=== PATIENT | male | born 1940 | race Caucasian/White ===

== ENCOUNTER → 2018-01-08 | Outpatient (CLI) | payer MEDICARE, OTHER ==
--- NOTE | 2018-01-08 10:18 | RADIOLOGY REPORT (SQ) ---
EXAM DESCRIPTION: CHEST PA/LATERAL COMPLETED DATE/TIME: 01/08/2018 9:59 am REASON FOR STUDY: CHEST PAIN COMPARISON: 04/30/2010, 02/28/2010 EXAM PARAMETERS: NUMBER OF VIEWS: two views TECHNIQUE: Digital Frontal and Lateral radiographic views of the chest acquired. RADIATION DOSE: NA LIMITATIONS: none FINDINGS: LUNGS AND PLEURA: No opacities, masses or pneumothorax. No pleural effusion. MEDIASTINUM AND HILAR STRUCTURES: No masses or contour abnormalities. HEART AND VASCULAR STRUCTURES: Heart normal size. No evidence for failure. BONES: No acute findings. HARDWARE: None in the chest. OTHER: No other significant finding. IMPRESSION: NO SIGNIFICANT RADIOGRAPHIC FINDING IN THE CHEST. TECHNICAL DOCUMENTATION: JOB ID: [id number] [employer]- All Rights Reserved Reading location - IP/workstation name: [email or web address]
== END ==
LOC: OD 09:42
PROVIDERS: ATTEND Student in an Organized Health Care Education/Training Program
DX: R07.9 Chest pain, unspecified (principal); R05 Cough
CPT/HCPCS: 71046

== ENCOUNTER → 2018-01-22 | Outpatient (CLI) | payer MEDICARE, OTHER ==
--- NOTE | 2018-01-22 16:33 | RADIOLOGY REPORT (SQ) ---
EXAM DESCRIPTION: CT CHEST WITH COMPLETED DATE/TIME: 01/22/2018 8:10 am REASON FOR STUDY: CHEST PAIN (R07.9) R07.9 CHEST PAIN, UNSPECIFIED COMPARISON: Chest x-ray 01/08/2018 TECHNIQUE: CT scan of the chest performed using helical scanning technique with dynamic intravenous contrast injection. Images reviewed with lung, soft tissue and bone windows. Reconstructed coronal and sagittal MPR and MIP images reviewed. All images stored on PACS. All CT scanners at this facility use dose modulation, iterative reconstruction, and/or weight based d osing when appropriate to reduce radiation dose to as low as reasonably achievable (ALARA). [facility]: Dose Right [facility]: CareDose [facility]: Dose Right [facility]: Teradose 4D [facility]: Kybernesis CONTRAST TYPE AND DOSE: contrast/concentration: Isovue 300.00 mg/ml; Total Contrast Delivered: 80.0 ml; Total Saline Delivered: 55.0 ml RENAL FUNCTION: Creatinine 1.2 RADIATION DOSE: CT Rad equipment meets quality standard of care and radiation dose reduction techniq ues were employed. CTDIvol: 10.8 mGy. DLP: 416 mGy-cm. . LIMITATIONS: None. FINDINGS: LUNGS AND PLEURA: Limited pleural/ parenchymal scarring in the right base. No infiltrate or effusion. No pulmonary mass is seen. HILAR AND MEDIASTINAL STRUCTURES: No identified masses or abnormal nodes. HEART AND VASCULAR STRUCTURES: No aneurysm. No dissection. No central pulmonary emboli. Coronary a therosclerosis. HARDWARE: None in the chest. UPPER ABDOMEN: No significant findings. Limited exam. THYROID AND OTHER SOFT TISSUES: No masses. No adenopathy. BONES: Bridging osteophytes in the thoracic spine. No osseous lesions. OTHER: No other significant finding. IMPRESSION: Coronary atherosclerosis. Thoracic spondylosis. No acute findings in the chest. TECHNICAL DOCUMENTATION: JOB ID: [id number] Quality ID # [id number]: Final reports with documentation of one or more dose reduction techniques (e.g., Au tomated exposure control, adjustment of the mA and/or kV according to patient size, use of iterative reconstruction technique) 2010 [employer]- All Rights Reserved Reading location - IP/workstation name: [email or web address]
== END ==
LOC: RAD 07:26
PROVIDERS: ATTEND Student in an Organized Health Care Education/Training Program
DX: R07.9 Chest pain, unspecified (principal); R07.89 Other chest pain; Z87.891 Personal history of nicotine dependence
CPT/HCPCS: 71260

== ENCOUNTER → 2018-07-08 | Outpatient (CLI) | payer MEDICARE, OTHER ==
--- NOTE | 2018-07-08 12:25 | XCELERA REPORT ---
[address] [facility] [address] Lower Extremity Venous Evaluation Procedure: Color flow and duplex imaging bilaterally of the veins of the lower extremities as well as the Common Femoral veins. Right Sided Venous Evaluation Normal vessel filling wall to wall, compression and augmentation as well as Colour flow down to the infrageniculate veins. Left Sided Venous Evaluation Normal vessel filling wall to wall, compression and augmentation as well as Colour flow down to the infrageniculate veins. Interpretation Summary No duplex evidence of DVT or obstruction in the bilateral lower extremities. Name: CATALINA ALVAREZ Age: 77 yrs Gender: Male : 1940 Patient Status: Preadmit Patient Location: Study Date: 07/08/2018 09:04 AM Reason For Study: SWELLING Ordering Physician: BALDEV KRAUSE Performed By: Gomez Dumont : BALDEV KRAUSE > Urban Bañuelos
== END ==
LOC: SP 08:13
PROVIDERS: ATTEND Student in an Organized Health Care Education/Training Program
DX: R60.9 Edema, unspecified (principal)
CPT/HCPCS: 93970

== ENCOUNTER 2019-09-05 07:55 | Emergency (ER) | payer MEDICARE, OTHER ==
[2019-09-05 08:01] VITALS: BP 137/63
--- NOTE | 2019-09-05 08:55 | ER Document Report ---
HPI - HPI Time Seen by Provider: 09/05/19 08:31 Pain Level: 5 Context: Patient is a 78-year-old male who presents emergency department with a chief complaint of left arm redness and neck redness. He was stung by a wasp about a week ago. Patient states that he has been taking topical Benadryl and oral Benadryl with no relief. He states that he is taking 1 tablet of Benadryl every 5-6 hours. Patient has a history of hypertension, hyperlipidemia, and high cholesterol. - ROS Systems Reviewed and Negative: Yes All other systems reviewed and negative - CONSTITUTIONAL Constitutional: DENIES: Fever, Chills - MUSCULOSKELETAL Musculoskeletal: REPORTS: Extremity pain - Right antecubital area, Neck Pain - Left posterior lateral neck - DERM Skin Color: Normal Skin Problems: Rash Past Medical History - Social History Smoking Status: Former Smoker Frequency of alcohol use: None Drug Abuse: None Family History: Reviewed & Not Pertinent - Past Medical History Cardiac Medical History: Reports: Hx Hypercholesterolemia, Hx Hypertension Endocrine Medical History: Reports: Hx Diabetes Mellitus Type 2 Past Surgical History: Reports: Hx Abdominal Surgery - hernia, Hx Appendectomy, Hx Kidney (Renal Surgery) - L nephrectomy Vertical Provider Document - CONSTITUTIONAL Agree With Documented VS: Yes Exam Limitations: No Limitations General Appearance: No Apparent Distress - INFECTION CONTROL TRAVEL OUTSIDE OF THE [place] IN LAST 30 DAYS: No - HEENT HEENT: Atraumatic, Normocephalic, PERRLA - NECK Neck: Normal Inspection - RESPIRATORY Respiratory: Breath Sounds Normal, No Respiratory Distress - CARDIOVASCULAR Cardiovascular: Regular Rate, Regular Rhythm Pulses: Normal: Radial - MUSCULOSKELETAL/EXTREMETIES Musculoskeletal/Extremeties: FROM - NEURO Level of Consciousness: Awake, Alert, Appropriate Motor/Sensory: No Motor Deficit, No Sensory Deficit - DERM Integumentary: Warm, Dry, Rash - right arm from mid forearm to antecubital area; back of left neck Course - Re-evaluation Re-evalutation: 09/05/19 08:55 Patient presents with symptoms most consistent with an acute cellulitis. Vitals within normal limits. Patient does not meet sepsis criteria is overall very well in appearance. Exam and history are not consistent with DVT. Patient will be started on coverage for both staph and strep. At this time will discharge with return precautions and follow-up recommendations. Verbal discharge instructions given a the bedside and opportunity for questions given. Medication warnings reviewed. Patient is in agreement with this plan and has verbalized understanding of return precautions and the need for primary care follow-up in the next 24-72 hours. - Vital Signs Vital signs: Temp Pulse Resp BP Pulse Ox 98.4 F 100 17 137/63 H 96 09/05/19 08:00 09/05/19 08:00 09/05/19 08:00 09/05/19 08:00 09/05/19 08:00 Discharge - Discharge Clinical Impression: Cellulitis Qualifiers: Site of cellulitis: unspecified site Qualified Code(s): L03.90 - Cellulitis, unspecified Insect sting Qualifiers: Encounter type: initial encounter Injury intent: accidental or unintentional Qualified Code(s): T63.481A - Toxic effect of venom of other arthropod, accidental (unintentional), initial encounter Condition: Stable Disposition: HOME, SELF-CARE Additional Instructions: The rash is likely due to infection of your skin. You need to take the antibiotics as prescribed. Do not stop even if the rash goes away until you have completed all the antibiotics. The area of redness was traced out here in the emergency department with a marking pen. You need to return to emergency department if the redness spreads outside of this area by more than 2 cm in any direction. You should also return if you develop fevers with temperature greater than 101, persistent vomiting, worsening pain, or have any other symptoms that are concerning to you. Continue Benadryl 25 to 50 mg every 4-6 hours as needed for itchiness. You can also continue topical Benadryl. Follow-up with your primary care provider for recheck of your rash. Prescriptions: Clindamycin HCl [Cleocin 150 mg Capsule] 300 mg PO Q6 7 Days #56 capsule Referrals: ELEAZAR MEIER PA-C [Primary Care Provider] - Follow up in 3-5 days
== END 2019-09-05 09:03 | disposition home or self-care (01) ==
LOC: ER 07:55
DX: L03.90 Cellulitis, unspecified (principal); T63.481A Toxic effect of venom of other arthropod, accidental (unintentional), initial encounter; X58.XXXA Exposure to other specified factors, initial encounter
CPT/HCPCS: 99283